=== PATIENT | male | born 1960 | race Caucasian/White ===

== ENCOUNTER 2018-03-14 08:25 | Day surgery (SDC) | payer OTHER, SELFPAY ==
[2018-03-14] VITALS (9 sets, daily range): BP systolic 106–136; BP diastolic 70–84; PULSE 48–68; RESP 11–20; TEMP 36.6–37.1; O2SAT 94–99; BMI 27.7
--- NOTE | 2018-03-14 | PATH_ITS ---
[facility] Accession Number: [id number] . 01 Material submitted: . PART A: TRANSVERSE COLON POLYP PART B: RECTAL POLYP . 02 Diagnosis: A. Biopsy Transverse Colon Polyp: Polypoid-shaped fragment of colon mucosa associated with prominent mucosal lymphoid aggregate. . B. Biopsy Rectal Polyp: Hyperplastic polyp. V/03/15/2018 . 02 Electronically signed: . Gil Gillette MD, Pathologist NPI- [id number] . 01 Gross description: . Received two formalin-filled containers both labeled with the patient's name. . A. In a container labeled transverse colon polyp, the specimen consists of a 0.3 cm portion of tissue. Entirely submitted in cassette A. B. In a container labeled rectal polyp, the specimen consists of a 0.3 cm portion of tissue. Entirely submitted in cassette B. ([facility] [place]:[id number]) /[facility] . 02 Pathologist provided ICD-10: K62.1 . 02 CPT . 916651, [id number] Performed at: 01 [facility] [address] [id number] MD Melchor Gomez MD Phone: [phone] Performed at: 02 [facility] [address] [place], [place] [id number] MD Yousif Ramey MD Phone: [phone]
[2018-03-14] MEDS: SODIUM CHLORIDE 0.9% 1,000 ML 70 ML IV (08:55)
--- NOTE | 2018-03-14 09:29 | PM.HP.1 ---
History of Present Illness Date Patient Seen: 03/14/18 Chief complaint: colonoscopy [id number] Narrative: 58-year-old male here for colon cancer screening. There is no family history of colon cancer and he is asymptomatic from a GI standpoint Patient History Surgical History History of hernia repair (Resolved Unknown) Family & Social History Social History: household members spouse Tobacco & Substance use: Smoking Status Former smoker Meds Allergies Allergy/AdvReac Type Severity Reaction Status Date / Time No Known Drug Allergies Allergy Unverified 02/03/18 16:31 Review of Systems Review of Systems All systems reviewed & are unremarkable except as noted in HPI and below Exam Vital Signs (past 8 hours): - 03/14/18 09:01 Temperature 97.8 F Pulse Rate 61 Respiratory Rate 16 Blood Pressure 136/84 H Pulse Oximetry 99 Oxygen Delivery Method Room Air Narrative Exam Narrative: General: Patient is well developed, not in apparent distress Cardiovascular: Regular rate and rhythm, no murmurs, rubs, or gallops; no evidence of edema; no palpable abdominal aortic aneurysm Gastrointestinal: Normoactive bowel sounds, soft, nontender, nondistended, no rebound tenderness, no hepatosplenomegaly, no evidence of hernia Assessment & Plan Plan: Assessment/Plan Narrative: 58-year-old male here for colon cancer screening. Regarding the procedure(s), the risks and potential complications, benefits, and alternatives (including not doing the procedure) were discussed with the patient. The risks include but are not limited to bleeding, infection, perforation which may require surgical intervention, missed lesions, and adverse reactions to sedative medicines. After a question and answer period, the patient agreed to proceed with the procedure(s).
--- NOTE | 2018-03-14 10:15 | PM.OP.ENDO ---
Operative Date/Time/Diagnoses Date of procedure: 03/14/18 Procedure Notes Procedure in detail: Surgeon: Talon Armendariz MD Procedure: Colonoscopy with polypectomy Preoperative diagnosis: Average risk colon cancer screening Postoperative diagnosis: Colon polyp status post polypectomy, grade 1 internal hemorrhoids Medications: Conscious sedation using 6 mg IV of Midazolam and 100 mcg IV of Fentanyl Preanesthesia Assessment An H and P was performed/updated and the Px?s ASA class is 1. The procedure was discussed in detail with the patient. The potential risks and complications including infection, bleeding, missed lesions, perforation, need for surgery in case of perforation, prolonged hospital stay, and were explained. A brief question and answer period was allotted and once all questions were answered, informed consent was obtained. The patient was brought back to the procedure room and placed on standard monitoring. The patient?s vital signs were monitored continuously throughout the entire procedure. Prior to starting, a timeout was performed to confirm the patient?s identity, allergies, medications, and procedure. Procedure in detail The patient was placed in left lateral decubitus position and once adequate sedation was obtained a JASPAL was performed. The digital rectal examination revealed no palpable lesions. The tip of the colonoscope was placed in the anal canal and advanced without difficulty all the way to the cecum which was identified by the appendiceal orifice and ileocecal valve. The terminal ileum was intubated to a distance of 5 cm with no mucosal abnormality. The colonoscope was brought back to the cecum and careful examination of all colon of the colon was performed with irrigation of any residual stool. In the transverse colon there was note of a 2 mm sessile polyp which was removed in its entirety by means of a cold Jumbo forceps with minimal bleeding. In the rectum there was noted a 3 mm sessile polyp which was removed by means of a cold biopsy forceps with minimal bleeding. Retroflexion was performed in the rectum which revealed grade 1 internal hemorrhoids. The patient tolerated the procedure well and will be brought back to the recovery area to be discharged once criteria are met. The prep was judged to be good/excellent and adequate to identify polyps less than 5 mm. The withdrawal time was 8 min. The total procedure time from initial sedation was 13 min. Complications There were no complications and estimated blood loss was minimal. Recommendations: Resume previous diet Resume any [id number] medications Follow up pathology results Repeat colonoscopy in 5 or 10 years depending on pathology results An emergency contact number was given to the patient for any complications related to the procedure
[2018-03-14] MEDS: MIDAZOLAM 5 MG/5 ML VIAL IV (10:22)
[2018-03-14] MEDS: fentaNYL 250 MCG/5 ML INJ IV (10:23)
--- NOTE | 2018-03-14 10:33 | PM.DS.1 ---
History of Present Illness Chief complaint: colonoscopy [id number] Narrative: 58-year-old male here for colon cancer screening. There is no family history of colon cancer and he is asymptomatic from a GI standpoint Discharge Providers Primary care physician: Elton Elizalde MD Discharge provider: Talon Armendariz MD Exam Vital Signs (past 8 hours): - 03/14/18 09:01 Temperature 97.8 F Pulse Rate 61 Respiratory Rate 16 Blood Pressure 136/84 H Pulse Oximetry 99 Oxygen Delivery Method Room Air Narrative Exam Narrative: General: Patient is well developed, not in apparent distress Cardiovascular: Regular rate and rhythm, no murmurs, rubs, or gallops; no evidence of edema; no palpable abdominal aortic aneurysm Gastrointestinal: Normoactive bowel sounds, soft, nontender, nondistended, no rebound tenderness, no hepatosplenomegaly, no evidence of hernia Discharge Plan Discharge Plan Patient Disposition: Home, Self-Care Discharge Med Rec/Prescriptions Discharge Orders: Discharge (Order); Ordered 03/14/18 Ordered By: Talon Armendariz Provider Discharge Instructions Diet: Diet as Tolerated Visit Report/Discharge Packet Stand Alone Forms: Surgery Discharge Discharge Data Primary Care Provider: Elton Elizalde Attending Provider: Talon Armendariz
== END 2018-03-14 11:25 | disposition home or self-care (01) ==
PROVIDERS: Family Provider Family Medicine; PCP Family Medicine; Visit Provider Internal Medicine Gastroenterology
PROC: 0DJD8ZZ Inspection of Lower Intestinal Tract, Via Natural or Artificial Opening Endoscopic (ICD-10-PCS; CPT 45378; principal; 2018-03-14 09:45)
DX: Z12.11 Encounter for screening for malignant neoplasm of colon (principal); Z87.891 Personal history of nicotine dependence; K64.0 First degree hemorrhoids; K62.1 Rectal polyp
CPT/HCPCS: 45380; J2250; J3010

== ENCOUNTER → 2018-06-12 16:14 | Outpatient (CLI) | payer OTHER, SELFPAY ==
--- NOTE | 2018-06-12 16:16 | DI.RAD.S_ITS ---
PROCEDURE: XR CHEST 2V INDICATIONS: chest pain with deep breathing TECHNIQUE: 2 views of the chest were acquired. COMPARISON: None. FINDINGS: Surgical changes and devices: None. Lungs and pleura: Trace atelectasis is present in the right lower lung. The lungs are otherwise clear. No pleural effusion or pneumothorax. Mediastinum: Mediastinal contours are normal. Heart size is normal. Bones and chest wall: No suspicious bony abnormalities. Soft tissues appear unremarkable. IMPRESSION: Trace right atelectasis. Short interval repeat study is recommended to ensure resolution of this finding and exclude central obstructing mass. Dictated by: Grisel Correia M.D. on 06/12/2018 at 17:15 Approved by: Grisel Correia M.D. on 06/12/2018 at 17:16
== END ==
PROVIDERS: Family Provider Family Medicine; PCP Family Medicine; Visit Provider Physician Assistant
DX: R07.1 Chest pain on breathing (principal)
CPT/HCPCS: 71046

== ENCOUNTER → 2022-08-10 08:45 | Outpatient (CLI) | payer OTHER, SELFPAY ==
[2022-08-10 09:34] LABS: Cholesterol 282 mg/dL (140-199); HDL Cholesterol 76 mg/dL (40-60); LDL Cholesterol Calculated 178 mg/dL (<100); Triglycerides 140 mg/dL (35-150)
[2022-08-10 10:06] LABS: Prostate Specific Antigen Scrn 0.844 ng/mL (0.1-4.0)
[2022-08-11 17:28] LABS: Hep C Virus Ab w/Reflex Quant NEGATIVE s/c (NEGATIVE)
== END ==
PROVIDERS: Family Provider Family Medicine; PCP Student in an Organized Health Care Education/Training Program; Referring Provider Student in an Organized Health Care Education/Training Program; Visit Provider Student in an Organized Health Care Education/Training Program
DX: Z13.220 Encounter for screening for lipoid disorders (principal); Z12.5 Encounter for screening for malignant neoplasm of prostate; Z11.59 Encounter for screening for other viral diseases
CPT/HCPCS: 36415; 80061; 86803; G0103

== ENCOUNTER → 2022-11-22 06:59 | Outpatient (CLI) | payer OTHER, SELFPAY ==
[2022-11-22 08:56] LABS: Cholesterol 231 mg/dL (140-199); HDL Cholesterol 69 mg/dL (40-60); LDL Cholesterol Calculated 137 mg/dL (<100); Triglycerides 123 mg/dL (35-150); VLDL Cholesterol Calculated 25 mg/dL (2-30)
== END ==
PROVIDERS: Family Provider Family Medicine; PCP Student in an Organized Health Care Education/Training Program; Referring Provider Student in an Organized Health Care Education/Training Program; Visit Provider Student in an Organized Health Care Education/Training Program
DX: E78.00 Pure hypercholesterolemia, unspecified (principal)
CPT/HCPCS: 36415; 80061

== ENCOUNTER → 2025-02-23 09:43 | Outpatient (CLI) | payer BC, SELFPAY ==
[2025-02-23 10:34] LABS: Influenza A - CEPHEID Flu A NEGATIVE (NEGATIVE); Influenza B - CEPHEID Flu B NEGATIVE (NEGATIVE)
[2025-02-23 10:36] LABS: COVID-19 CEPHEID 4-PLEX PCR Negative (Negative)
== END ==
PROVIDERS: Family Provider Family Medicine; Visit Provider Physician Assistant
DX: J02.9 Acute pharyngitis, unspecified (principal); R05.1 Acute cough
CPT/HCPCS: 87070; 87637